=== PATIENT | male | born 1985 | race Caucasian/White ===

== ENCOUNTER 2024-07-25 19:01 | Emergency (ER) | payer SELFPAY ==
[2024-07-25 19:02] VITALS: BP 167/89
--- NOTE | 2024-07-25 20:06 | ED.MUSCINJ ---
HPI-Injury
General
Chief Complaint: Musculo-Skeletal Complaint
Source: patient
Exam Limitations: none
Time Seen by Provider: 07/25/24 19:34
History of Present Illness-Injury
Is this injury a work related problem?: No
Is pt an associate of [facility]?: No
Initial Injury comments:
This is a 39 year old male that comes in with c/o left ankle pain. States that he was out hiking and he tried to do a 'spider man jump' States that when he jumped he twisted his ankle when he came down. States that he sat down right away. States
that he did not hit his head or have any LOC. Denies any fever, chills, chest pain, SOB, abd pain, nausea, vomiting, diarrhea, headache, dizziness, urinary burning.
Past History
Past History
ED Past Medical History: HTN; Negative Asthma, Hypercholesterolemia or NIDDM
ED Past Surgical History: None
Social History
Tobacco: Non-smoker
Alcohol: Occasional
Personal: Single
Review of Systems
Review of Systems
All Other Systems: ROS reviewed and negative except as documented in HPI and ROS
Constitutional: Reports no symptoms; Denies fever or chills
EENT: Reports no symptoms
Respiratory: Reports no symptoms; Denies cough or trouble breathing
Cardiac: Reports no symptoms; Denies chest pain
ABD/GI: Reports no symptoms; Denies abdominal pain, nausea, vomiting or diarrhea
: Reports no symptoms; Denies dysuria, frequency or urgency
Musculoskeletal: Reports joint pain (Left ankle pain)
Skin: Reports no symptoms
Neurological: Reports no symptoms; Denies dizzy or headache
Psychiatric: Reports no symptoms
Musculoskeletal Injury Exam
Musculoskeletal Injury Exam
Left Ankle:
Pain with Movement?: Mild
Tender to palpation?: Mild
Soft tissue swelling?: Mild
External deformity and angulation?: None
Joint effusion?: None
Contusion?: None
Hematoma-local bleeding into tissue?: None
Strain- Sprain- Tear (Connective tissue injury)?: None
Crepitus with movement?: No
Joint instability?: No
Malalignment/deformity?: No
Range of motion: Limited (Due to pain)
Distal skin color and temperature: normal-warm & good color
Capillary Refill: normal
Normal distal neurovascular exam?: Yes
Phy Exam
General Physical Exam
General Presentation: well appearing and no apparent distress
General age: appears stated age
General Skin: warm and dry
General Habitus: normal
General Mental: alert
General Hydration: appears well hydrated
Eye Exam
Eye Exam: EOMI
Musculoskeletal Exam
Musculoskeletal Exam: joint swelling (Left ankle slight with medial and lateral tenderness with palpation. patient able to slightly flex planter and dorsal flex. )
Skin Exam
Skin Exam: normal color, warm/dry, no rash, no petechia and other (Small abrasion noted on the left mccurdy)
Psychiatric Exam
Psychiatric Exam: normal mood/affect
Injury Course
Orders/Labs/Results
Orders:
Orders
07/25/24 19:05
Ankle, left 3 view CR [CR Ankle - Left Min 3 Views ] Urgent
Comment:
Reason For Exam: injury
MDM/Problems Addressed
Differential Diagnosis Includes:
Left ankle sprain. Left ankle fracture.
MDM/Problems Addressed:
This is a 39 year old male that comes in with c/o left ankle pain after doing a jump when hiking.
Will get X-ray and medicate for pain.
back into see patient. Explained that he does have a fractures. Will give patient Crutches and place a short leg splint. Patient to follow up with the loan operations specialist for further evaluation. Rest, ice and elevate. Tylenol and Ibuprofen for
pain. Return with any concerns.
Chronic conditions affecting care:
NA
Acute Exacerbation and/or Progression of Chronic Illness:
NA
*Radiology
Radiology exam reviewed: radiology read reviewed (Left ankle =Minimally displaced, intra-articular posterior malleolar fracture involving less than 25% of the articular surface. )
*Pulse Oximetry
Patient hypoxic: no
*EKG
Interpreted by ED Provider?: NA
Rate: EKG- N/A
*Rag Cutting Machine Operator Interpretation
Rate: Rag Cutting Machine Operator- N/A
*Critical Care Note
Total Time (30-74mins, 75-104mins- exclusive of procedures): Not Applicable
ED Attending Note
-
Portions of this chart may have been created with voice recognition software.� Occasional wrong word or��sound alike� substitutions may have occurred due to the inherent limitations of voice recognition software.
Discharge Plan
Departure
Patient Disposition: Home (Routine Discharge)
Date of Disposition: 07/25/24
Time of Disposition: 20:14
Patient with high blood pressure during this ER visit?: Yes
Condition: Good
Covid-19: Not Applicable
Discharge Problem:
Ankle fracture, left
Instructions: How to Use Crutches, Ankle Fracture (DC), How to care for a splint, BLOOD PRESSURE
Referrals:
Demetrio Sargent MD [Active] - Follow up in 2-3 days
Mario Jimenez DO [Family Provider] -
Activity Restrictions/Additional Instructions:
As discussed, you have a fracture of the posterior malleolar. You have been given Crutches and place in a splint. Please wear the splint until you are seen by the loan operations specialist. Rest, ice and elevate. No weight baring until you have been
seen by the Orthopedic doctor. Tylenol 1000mg every 6 hours for pain and alternate with Ibuprofen 600mg every 6 hours for pain. IF YOU HAVE ANY OTHER CONCERNS PLEASE RETURN TO THE EMERGENCY ROOM.
Interventions
Interventions:
*Risk Screen - Suicide Last Done: 07/25/24 19:02
*General Assessment Last Done: 07/25/24 19:02
*Neglect/Abuse Screening Last Done: 07/25/24 19:02
ED-Musculoskeletal Assessment Last Done: 07/25/24 19:47
Discharge Date and Time
Print Language: NAURUAN
[2024-07-25] MEDS: MOTRIN 600 MG PO (20:22)
== END 2024-07-25 21:11 | disposition home or self-care (01) ==
LOC: EMR 19:01
PROVIDERS: EMERGENCY PHYSICIAN Emergency Medicine; FAMILY PHYSICIAN Family Medicine
DX: S82.892A Other fracture of left lower leg, initial encounter for closed fracture (principal); X50.1XXA Overexertion from prolonged static or awkward postures, initial encounter; Y93.39 Activity, other involving climbing, rappelling and jumping off; Y92.89 Other specified places as the place of occurrence of the external cause; I10 Essential (primary) hypertension
CPT/HCPCS: 99283; 29515; 73610